=== PATIENT | female | born 1990 | race African-American/Black ===

== ENCOUNTER 2018-10-07 08:49 | Emergency (ER) | payer OTHER ==
[~2018-10-07] VITALS: Ht 157.5 cm; Wt 79.5 kg
--- NOTE | 2018-10-07 09:25 | REP ---
Clinical: Trauma . Comparison: None . Findings: The ventricles, sulci, and cisterns are normal in position and appearance. [place]-white differentiation is maintained. No acute intracranial hemorrhage, mass/mass effect, pathology or trauma/injury. No evidence for acute infarction. No extra-axial fluid collection. Calvarium is intact. Paranasal sinuses and mastoid air cells are clear. Impression: Normal noncontrast head CT. No evidence for acute intracranial pathology or trauma/injury. Electronically Signed by Jaden Coleman MD 10/07/2018 09:17 A
--- NOTE | 2018-10-07 09:26 | REP ---
Clinical: Trauma . Technique: Axial noncontrast images from the skull base to the thoracic inlet with coronal and sagittal re-formations Findings: Normal alignment and lordosis is maintained. Cervical vertebral bodies including transverse processes and spinous processes are intact and there is no evidence for acute fracture / compression injury or subluxation. Spinal canal is patent. Posterior elements are intact. Paravertebral soft tissues are normal. Focal mild degenerative disc osteophyte complex at C5-6 noted. Impression: Essentially normal noncontrast cervical spine CT. No evidence for acute pathology or trauma/injury. Electronically Signed by Jaden Coleman MD 10/07/2018 09:18 A
--- NOTE | 2018-10-07 09:59 | REP ---
Clinical: Trauma. Technique: AP, lateral, bilateral oblique and sunrise views left knee . Findings: The osseous structures and joint spaces are intact and normal. There is no evidence for acute fracture or dislocation. No joint effusion is appreciated. Surrounding soft tissues are unremarkable. No subcutaneous emphysema or radiodense foreign body. Impression: Normal left knee examination. No acute fracture or dislocation. Electronically Signed by Jaden Coleman MD 10/07/2018 09:51 A
[2018-10-07] MEDS ORDERED: IBUPROFEN 800 MG TAB PO ONE (10:00)
[2018-10-07 10:13] VITALS: BP 128/77
== END 2018-10-07 10:16 | disposition home or self-care (01) ==
LOC: EDBD 08:49 → M ED 08:49
DX: S00.83XA Contusion of other part of head, initial encounter (principal); S00.81XA Abrasion of other part of head, initial encounter; S80.02XA Contusion of left knee, initial encounter; S80.212A Abrasion, left knee, initial encounter; V47.5XXA Car driver injured in collision with fixed or stationary object in traffic accident, initial encounter; Y92.410 Unspecified street and highway as the place of occurrence of the external cause

== ENCOUNTER 2018-12-11 18:33 | Emergency (ER) | payer OTHER ==
[~2018-12-11] VITALS: Ht 157.5 cm; Wt 78.3 kg
[2018-12-11 20:57] LABS: BASO % 0.3 % (0.0-1.0); EOS # 0.2 10^3/uL (0.0-0.50); EOS % 3.3 % (0.0-3.0); HEMOGLOBIN 11.7 g/dl (12.0-15.5); LYMPH # 2.1 10^3/uL (1.5-4.5); LYMPH % 28.4 % (24.0-44.0); MEAN CORPUSCULAR HEMOGLOBIN 29.7 pg (27.0-33.0); MEAN CORPUSCULAR HGB CONC 32.5 g/dl (32.0-36.5); MEAN CORPUSCULAR VOLUME 91.4 fl (80.0-96.0); MONO # 0.5 10^3/uL (0.0-0.8); MONO % 6.2 % (0.0-5.0); NEUTROPHILS # 4.5 10^3/uL (1.8-7.7); NEUTROPHILS % 61.5 % (36.0-66.0); PLATELET COUNT, AUTOMATED 375 10^3/uL (150-450); RED BLOOD COUNT 3.94 10^6/uL (4.00-5.40); WHITE BLOOD COUNT 7.4 10^3/uL (4.0-10.0)
[2018-12-11 21:21] LABS: ALBUMIN 3.3 GM/DL (3.2-5.2); ALT/SGPT 20 U/L (12-78); BILIRUBIN,DIRECT < 0.1 MG/DL (0.0-0.2); BILIRUBIN,TOTAL 0.2 MG/DL (0.2-1.0); BLOOD UREA NITROGEN 6 MG/DL (7-18); CALCIUM LEVEL 8.5 MG/DL (8.5-10.1); CARBON DIOXIDE LEVEL 30 MEQ/L (21-32); CHLORIDE LEVEL 105 MEQ/L (98-107); CREATININE FOR GFR 0.71 MG/DL (0.55-1.30); GLOMERULAR FILTRATION RATE > 60.0 (>60); GLUCOSE, FASTING 90 MG/DL (70-100); POTASSIUM SERUM 3.8 MEQ/L (3.5-5.1); SODIUM LEVEL 141 MEQ/L (136-145); TOTAL PROTEIN 7.7 GM/DL (6.4-8.2)
[2018-12-11 21:23] LABS: HCG, SERUM QUALITATIVE NEGATIVE (NEGATIVE)
--- NOTE | 2018-12-11 22:24 | REPVR ---
EXAM: CT Abdomen and Pelvis Without Contrast EXAM DATE/TIME: 12/11/2018 9:44 PM CLINICAL HISTORY: 28 years old, female; Abdominal pain; Flank; Right; Additional info: R flank pain TECHNIQUE: Imaging protocol: Axial computed tomography images of the abdomen and pelvis without contrast. Coronal and sagittal reformatted images were created and reviewed. Radiation optimization: All CT scans at this facility use at least one of these dose optimization techniques: automated exposure control; mA and/or kV adjustment per patient size (includes targeted exams where dose is matched to clinical indication); or iterative reconstruction. COMPARISON: No relevant prior studies available. FINDINGS: ABDOMEN: Liver: Normal. No mass. Gallbladder and bile ducts: The gallbladder is incompletely distended. This is most likely related to incomplete fasting. Clinical correlation to exclude gallbladder pathology suggested. Pancreas: Normal. No ductal dilation. Spleen: Normal. No splenomegaly. Adrenals: Normal. No mass. Kidneys and ureters: Normal. No hydronephrosis. Stomach and bowel: Normal. No obstruction. No mucosal thickening. Appendix: No evidence of appendicitis. PELVIS: Bladder: Unremarkable as visualized. Reproductive: Unremarkable as visualized. ABDOMEN and PELVIS: Intraperitoneal space: Normal. No free air. No significant fluid collection. Bones/joints: Moderate central spinal stenosis L4-5. Soft tissues: Small paraumbilical hernia. Otherwise unremarkable. Vasculature: Normal. No abdominal aortic aneurysm. Lymph nodes: Normal. No enlarged lymph nodes. IMPRESSION: The gallbladder is incompletely distended. This is most likely related to incomplete fasting. Clinical correlation to exclude gallbladder pathology suggested. Electronically signed by: Alberto Frederick On 12/11/2018 22:23:42 PM
[2018-12-11] MEDS ORDERED: CIPR-249 PO (22:40)
[2018-12-11 22:51] VITALS: BP 133/84
[2018-12-11] MEDS ORDERED: CIPROFLOXACIN 500 MG TAB PO ONE (23:15)
== END 2018-12-11 23:12 | disposition home or self-care (01) ==
LOC: M ED 18:33
DX: N39.0 Urinary tract infection, site not specified (principal); M25.562 Pain in left knee

== ENCOUNTER 2020-01-04 00:13 | Emergency (ER) | payer OTHER ==
[~2020-01-04] VITALS: Ht 157.5 cm; Wt 85.6 kg
[~2020-01-04 00:13] MED LIST: CIPR-249 PO
[2020-01-04 02:07] LABS: APPEARANCE, URINE CLOUDY (CLEAR); BACTERIA, URINE AUTO NEGATIVE (NEGATIVE); BILIRUBIN, URINE AUTO NEGATIVE (NEGATIVE); BLOOD, URINE BLOOD NEGATIVE (NEGATIVE); CALCIUM OXALATE CRYSTALS LARGE; COLOR, URINE YELLOW (YELLOW); GLUCOSE, URINE (UA) AUTO NEGATIVE (NEGATIVE); KETONE, URINE AUTO NEGATIVE (NEGATIVE); LEUKOCYTE ESTERASE, URINE AUTO 3+ (NEGATIVE); MUCUS, URINE SMALL (NEGATIVE); NITRITE, URINE AUTO NEGATIVE (NEGATIVE); PROTEIN, URINE AUTO 2+ mg/dL (NEGATIVE); RBC, URINE AUTO 54 /HPF (0-3); SPECIFIC GRAVITY URINE AUTO 1.028 (1.002-1.035); SQUAMOUS EPITHELIAL CELL UR AU 1 /HPF (0-6); TRANSITIONAL EPITHELIAL AUTO 5 /HPF; UROBILINOGEN, URINE AUTO 0.2 mg/dL (0.0-2.0); WBC, URINE AUTO 161 /HPF (0-3)
[2020-01-04] MEDS ORDERED: BACT800T5 PO (03:30)
[2020-01-04] MEDS ORDERED: PHENAZOPYRIDINE 100 MG TAB PO ONE (03:30)
[2020-01-04] MEDS ORDERED: BACTRIM 160MG/800MG DS TAB PO ONE (03:30)
[2020-01-04] MEDS ORDERED: PYRI1TAB5 PO (03:30)
[2020-01-04 03:46] VITALS: BP 134/93
== END 2020-01-04 03:48 | disposition home or self-care (01) ==
LOC: M ED 00:13
DX: N39.0 Urinary tract infection, site not specified (principal); R35.0 Frequency of micturition

== ENCOUNTER 2020-06-17 00:13 | Emergency (ER) | payer OTHER, SELFPAY ==
[~2020-06-17] VITALS: Ht 157.5 cm; Wt 79.1 kg
[~2020-06-17 00:13] MED LIST changes: +BACT800T5 PO; +PYRI1TAB5 PO
[2020-06-17 00:14] VITALS: BP 120/68
[2020-06-17] MEDS ORDERED: FLAG500T PO (01:28)
[2020-06-17] MEDS ORDERED: DULC10SU2 PR (01:28)
[2020-06-17] MEDS ORDERED: COLA100C5 PO (01:28)
== END 2020-06-17 01:35 | disposition home or self-care (01) ==
LOC: M ED 00:13
DX: N76.0 Acute vaginitis (principal); K59.00 Constipation, unspecified

== ENCOUNTER 2024-09-20 17:31 | Emergency (ER) | payer OTHER ==
[~2024-09-20] VITALS: Ht 157.5 cm; Wt 85.0 kg
[~2024-09-20 17:31] MED LIST changes: +COLA100C5 PO; +DULC10SU2 PR; +FLAG500T PO
[2024-09-20 18:24] LABS: BASO % 0.2 % (0.0-1.0); EOS # 0.1 10^3/uL (0.0-0.5); HEMATOCRIT 34.5 % (36.0-47.0); HEMOGLOBIN 11.2 g/dl (12.0-15.5); LYMPH # 1.9 10^3/uL (1.5-5.0); LYMPH % 36.1 % (24.0-44.0); MEAN CORPUSCULAR HEMOGLOBIN 28.6 pg (27.0-33.0); MEAN CORPUSCULAR HGB CONC 32.5 g/dl (32.0-36.5); MEAN CORPUSCULAR VOLUME 88.2 fl (80.0-96.0); MONO # 0.3 10^3/uL (0.0-0.8); MONO % 6.5 % (2.0-8.0); PLATELET COUNT, AUTOMATED 389 10^3/uL (150-450); RED BLOOD COUNT 3.91 10^6/uL (4.00-5.40); WHITE BLOOD COUNT 5.3 10^3/uL (4.0-10.0)
[2024-09-20 19:07] LABS: LIPASE 47 U/L (12-53)
[2024-09-20 19:09] LABS: HCG, SERUM QUALITATIVE NEGATIVE (NEGATIVE)
[2024-09-20 19:10] LABS: ALBUMIN 3.4 G/DL (3.2-5.2); ALKALINE PHOSPHATASE 56 U/L (35-104); ALT/SGPT 17 U/L (7.0-40); AST/SGOT 14 U/L (<34); BILIRUBIN,DIRECT < 0.1 MG/DL (<0.4); BILIRUBIN,TOTAL < 0.2 MG/DL (0.3-1.2); BLOOD UREA NITROGEN 8 MG/DL (9-23); CALCIUM LEVEL 9.4 MG/DL (8.5-10.1); CARBON DIOXIDE LEVEL 28 MMOL/L (20-31); CHLORIDE LEVEL 103 MMOL/L (98-107); CREATININE FOR GFR 0.66 MG/DL (0.55-1.30); GLOMERULAR FILTRATION RATE > 60.0 (>60); GLUCOSE, FASTING 81 MG/DL (60-100); POTASSIUM SERUM 3.8 MMOL/L (3.5-5.1); SODIUM LEVEL 142 MMOL/L (136-145); TOTAL PROTEIN 7.3 G/DL (5.7-8.2)
[2024-09-20 20:03] VITALS: TEMP 97.9
[2024-09-20 20:18] LABS: KETONE, URINE AUTO RFX NEGATIVE (NEGATIVE); LEUKOCYTE ESTERASE UR AUTO RFX NEGATIVE (NEGATIVE); NITRITE, URINE AUTO RFX NEGATIVE (NEGATIVE); RBC, URINE AUTO RFX 3 /HPF (0-3); SQUAM EPITHELIAL CELL UR AURFX 3 /HPF (0-6); WBC, URINE AUTO RFX 0 /HPF (0-3)
[2024-09-20 22:07] VITALS: BP 161/92; O2SAT 100
[2024-09-20] MEDS ORDERED: ISOVUE-370 76% 100ML VIAL As Ordered ONE (23:37)
[2024-09-21] MEDS: KETOROLAC 30 MG/ML 1ML VIAL IV ONE
[2024-09-21] MEDS ORDERED: MIRA3350 PO (02:18)
[2024-09-21] MEDS ORDERED: DOCU100T8 PO (02:19)
== END 2024-09-21 02:29 | disposition home or self-care (01) ==
LOC: M ED 17:31
DX: K59.00 Constipation, unspecified (principal); J98.11 Atelectasis; F10.10 Alcohol abuse, uncomplicated
CPT/HCPCS: 36415; 74177; 80048; 80076; 81001; 83690; 84703; 85025; 99283; Q9967